=== PATIENT | female | born 1995 | race Caucasian/White ===

== ENCOUNTER 2020-04-07 18:09 | Emergency (ER) | payer MEDICAID ==
[~2020-04-07] VITALS: Ht 149.9 cm; Wt 54.5 kg
[2020-04-07] MEDS ORDERED: PREN-155 PO (18:15)
[2020-04-07] MEDS ORDERED: DiphenhydrAMINE HCL 25 MG CAPSULE PO ONE (19:45)
[2020-04-07 19:58] VITALS: BP 111/68
== END 2020-04-07 20:02 | disposition home or self-care (01) ==
LOC: EMS 18:09
DX: O99.711 Diseases of the skin and subcutaneous tissue complicating pregnancy, first trimester (principal); L25.9 Unspecified contact dermatitis, unspecified cause; Z3A.13 13 weeks gestation of pregnancy
CPT/HCPCS: Z7502; Z7610